=== PATIENT | female | born 1985 | race Two or more races ===

== ENCOUNTER 2017-06-03 06:55 | Observation (INO) | payer OTHER ==
[~2017-06-03 06:55] MED LIST: PREN27TA7 OR
== END 2017-06-03 07:30 | disposition left against medical advice (07) | DRG 998 ==
LOC: LDRP 06:55
PROVIDERS: ADMIT Specialist; ATTEND Specialist
DX: O26.899 Other specified pregnancy related conditions, unspecified trimester (principal); R10.9 Unspecified abdominal pain; Z3A.00 Weeks of gestation of pregnancy not specified
CPT/HCPCS: G0378